=== PATIENT | female | born 1955 ===

== ENCOUNTER 2017-10-08 10:54 | Emergency (ER) | payer MEDICAID ==
[2017-10-08 10:54] VITALS: BMI 25.4
[2017-10-08 11:12] VITALS: RESP 18; TEMP 98.5; O2SAT 100
[2017-10-08] MEDS ORDERED: Sodium Chloride 0.9% 1,000 ML IV STA (12:02)
--- NOTE | 2017-10-08 12:09 | ED PDOC ---
Arrival/HPI - General Chief Complaint: Flu-like Symptoms Time Seen by Provider: 10/08/17 11:53 Historian: Patient - History of Present Illness Narrative History of Present Illness (Text): 10/08/17 11:53 Lya Tafoya is a 62 year old female who presents to the emergency department complaining of flu-like symptoms that include mild coughs, congestion, URI, fever, chills, myalgias, arthralgias for the past 4 days. Patient states that she went to a walk-in center and tested positive for the flu. The patient was started on Tamiflu to no relief. No other complaints offered at this time. Time/Duration: < week Symptom Onset: Gradual Symptom Course: Unchanged Activities at Onset: Light Context: Home Past Medical History - Provider Review Nursing Documentation Reviewed: Yes - Infectious Disease Hx of Infectious Diseases: None - Cardiac Hx Hypertension: Yes - Pulmonary Hx Asthma: Yes - Neurological Hx Neurological Disorder: No - HEENT Hx HEENT Disorder: No - Renal Hx Renal Disorder: No - Integumentary Hx Dermatological Disorder: No - Musculoskeletal/Rheumatological Hx Musculoskeletal Disorders: No - Gastrointestinal Hx Gastrointestinal Disorders: No - Psychiatric Hx Substance Use: No - Past Surgical History Past Surgical History: No Previous - Anesthesia Hx Anesthesia: No Hx Anesthesia Reactions: No Hx Malignant Hyperthermia: No - Suicidal Assessment Feels Threatened In Home Enviroment: No Family/Social History - Physician Review Nursing Documentation Reviewed: Yes Family/Social History: No Known Family HX Smoking Status: Never Smoked Hx Alcohol Use: No Hx Substance Use: No Hx Substance Use Treatment: No Allergies/Home Meds Allergies/Adverse Reactions: Allergies No Known Allergies Allergy (Verified 10/08/17 11:16) Home Medications: Home Meds Medication Instructions Recorded Confirmed Doxycycline Hyclate [Doryx] 100 mg PO BID 10/08/17 10/08/17 Oseltamivir Phosphate [Tamiflu] 75 mg PO BID 10/08/17 10/08/17 Review of Systems - Physician Review All systems were reviewed & negative as marked: Yes - Review of Systems Constitutional: Fevers, Night Sweats Eyes: absent: Vision Changes ENT: Sinus Congestion. absent: Hearing Changes Respiratory: Cough Cardiovascular: absent: Chest Pain Gastrointestinal: absent: Abdominal Pain, Nausea, Vomiting Genitourinary Female: Other (URI) Musculoskeletal: Arthralgias, Myalgias Skin: absent: Rash, Pruritis Neurological: absent: Headache Endocrine: absent: Diaphoresis Hemo/Lymphatic: absent: Adenopathy Psychiatric: absent: Anxiety, Depression Physical Exam Vital Signs Reviewed: Yes Vital Signs Temp Pulse Resp BP Pulse Ox 10/08/17 12:59 71 18 168/96 H 100 10/08/17 11:10 98.5 F 76 18 186/104 H 100 Temperature: Afebrile Blood Pressure: Hypertensive Pulse: Regular Respiratory Rate: Normal Appearance: Positive for: Uncomfortable Pain Distress: None Mental Status: Positive for: Alert and Oriented X 3 - Systems Exam Head: Present: Atraumatic, Normocephalic Pupils: Present: PERRL Extroacular Muscles: Present: EOMI Conjunctiva: Present: Normal Ears: Present: Normal Mouth: Present: Moist Mucous Membranes Pharnyx: Present: Normal Neck: Present: Normal Range of Motion Respiratory/Chest: Present: Clear to Auscultation, Good Air Exchange. No: Respiratory Distress, Accessory Muscle Use Cardiovascular: Present: Regular Rate and Rhythm, Normal S1, S2. No: Murmurs Abdomen: Present: Normal Bowel Sounds. No: Tenderness, Distention, Peritoneal Signs Upper Extremity: Present: Normal Inspection. No: Cyanosis, Edema Lower Extremity: Present: Normal Inspection. No: Edema Skin: Present: Warm, Dry, Normal Color. No: Rashes Psychiatric: Present: Alert, Oriented x 3, Normal Insight, Normal Concentration Medical Decision Making ED Course and Treatment: 10/08/17 12:10 Impression: 62 year old female complaining of flu-like symptoms that include mild coughs, congestion, URI, fever, chills, myalgias, arthralgias for the past 4 days. Plan: -- Chest X-ray -- Labs -- Motrin and IV fluids -- Reassess and disposition Progress Notes: 10/08/17 13:39 Seen at another facility and flu positive. No better on Tamiflu. Patient does not appear ill or toxic. - Lab Interpretations Lab Results: 10/08/17 12:50 10/08/17 12:50 Lab Results 10/08/17 12:50: Sodium 145, Potassium 4.1, Chloride 104, Carbon Dioxide 30, Anion Gap 15, BUN 13, Creatinine 0.7, Est GFR ( Amer) > 60, Est GFR (Non- Af Amer) > 60, Random Glucose 97, Calcium 9.5, Total Bilirubin 0.3, AST 28, ALT 30, Alkaline Phosphatase 76, Total Protein 7.7, Albumin 4.0, Globulin 3.7, Albumin/Globulin Ratio 1.1 10/08/17 12:50: WBC 8.0, RBC 4.75, Hgb 14.1, Hct 42.2, MCV 88.8, MCH 29.7, MCHC 33.4, RDW 12.7, Plt Count 189, MPV 10.0, Gran % 72.3 H, Lymph % (Auto) 22.7, [place] % (Auto) 4.4, Eos % (Auto) 0.5 L, Baso % (Auto) 0.1, Gran # 5.76, Lymph # ( Auto) 1.8, [place] # (Auto) 0.4, Eos # (Auto) 0.0, Baso # (Auto) 0.01 I have reviewed the lab results: Yes - RAD Interpretation Radiology Orders: 10/08/17 12:02 CHEST TWO VIEWS (PA/LAT) [RAD] Stat Chest 2 view shows no infiltrate effusion or cardiomegaly Piano Tuner: ED Physician - Medication Orders Current Medication Orders: Discontinued Medications Sodium Chloride (Sodium Chloride 0.9%) 1,000 mls @ 1,000 mls/hr IV .Q1H STA Stop: 10/08/17 13:01 Last Admin: 10/08/17 12:39 Dose: 1,000 mls/hr eMAR Start Stop Document 10/08/17 12:39 [place] (Rec: 10/08/17 12:39 [facility] [id number]) Intravenous Solution Start Date 10/08/17 Start Time 12:39 Ibuprofen (Motrin Tab) 400 mg PO STAT STA Stop: 10/08/17 12:03 Last Admin: 10/08/17 12:39 Dose: 400 mg - Scribe Statement The provider has reviewed the documentation as recorded by the Felisha Joseph Provider Scribe Attestation: All medical record entries made by the Scribe were at my direction and personally dictated by me. I have reviewed the chart and agree that the record accurately reflects my personal performance of the history, physical exam, medical decision making, and the department course for this patient. I have also personally directed, reviewed, and agree with the discharge instructions and disposition. Disposition/Present on Arrival - Present on Arrival Any Indicators Present on Arrival: No History of DVT/PE: No History of Uncontrolled Diabetes: No Urinary Catheter: No History of Decub. Ulcer: No History Surgical Site Infection Following: None - Disposition Have Diagnosis and Disposition been Completed?: Yes Diagnosis: Influenza Disposition: HOME/ ROUTINE Disposition Time: 13:39 Patient Plan: Discharge Patient Problems: Current Active Problems Problem Status Onset Influenza Acute Condition: GOOD Discharge Instructions (ExitCare): Influenza (ED) Additional Instructions: Symptomatic treatment. Tylenol or Advil as directed on bottle as needed. Hypertension check with PMD. Follow up in ER as needed. Forms: [facility] (Croatian)
[2017-10-08 13:06] LABS: BASO # 0.01 K/mm3 (0.0-2.0); BASO % 0.1 % (0.0-3.0); EOS % 0.5 % (1.5-5.0); GRAN # 5.76 (1.4-6.5); GRAN % 72.3 % (50.0-68.0); HEMOGLOBIN 14.1 g/dL (12.0-16.0); LYMPH # 1.8 (1.2-3.4); LYMPH % 22.7 % (22.0-35.0); MEAN CELL VOLUME 88.8 fl (80.0-105.0); MEAN CORPUSCULAR HEMOGLOBIN 29.7 pg (25.0-35.0); MEAN CORPUSCULAR HGB CONC 33.4 g/dl (31.0-37.0); MONO # 0.4 (0.1-0.6); MONO % 4.4 % (1.0-6.0); RBC 4.75 10^6/uL (3.5-6.1); RED CELL DISTRIBUTION WIDTH 12.7 % (11.5-14.5)
--- NOTE | 2017-10-08 13:10 | RAD ---
HISTORY: cough COMPARISON: No prior. TECHNIQUE: Chest PA and lateral FINDINGS: LUNGS: No active pulmonary disease. PLEURA: No significant pleural effusion identified. No pneumothorax apparent. CARDIOVASCULAR: Normal. OSSEOUS STRUCTURES: No significant abnormalities. VISUALIZED UPPER ABDOMEN: Normal. OTHER FINDINGS: None. IMPRESSION: No active disease.
[2017-10-08 13:16] LABS: ALB/GLOB RATIO 1.1 (1.1-1.8); ALT/SGPT 30 U/L (7-56); AST/SGOT 28 U/L (14-36); BLOOD UREA NITROGEN 13 mg/dL (7-21); CALCIUM 9.5 mg/dL (8.4-10.5); GFR AFRICAN-AMERICAN > 60; GFR NON-AFRICAN AMERICAN > 60
[2017-10-08 13:57] VITALS: BP 165/86; PULSE 76
== END 2017-10-08 14:00 | disposition home or self-care (01) ==
LOC: ED 10:54
DX: J11.1 Influenza due to unidentified influenza virus with other respiratory manifestations (principal); I10 Essential (primary) hypertension
CPT/HCPCS: 71046; 80053; 85025; 99285; J7040

== ENCOUNTER 2017-10-10 07:18 | Emergency (ER) | payer MEDICAID ==
[2017-10-10 07:19] VITALS: BMI 25.4
[2017-10-10] MEDS ORDERED: Sodium Chloride 0.9% 1,000 ML IV STA (08:04)
--- NOTE | 2017-10-10 08:23 | ED PDOC ---
Arrival/HPI - General Chief Complaint: Anxiety Time Seen by Provider: 10/10/17 07:56 Historian: Patient - History of Present Illness Narrative History of Present Illness (Text): 10/10/17 08:04 A 62 year old female, whose past medical history includes hypertension, menopause, and asthma, presents to the emergency department complaining of anxiety since yesterday. Patient reports also experiencing associated chest discomfort, shortness of breath, weakness, abdominal pain, nausea, and appetite changes, but denies of any urinary symptoms. Her symptoms are similar to her anxiety. She also recently took tamiflu for flu-like symptoms. PMD: Dr. Tompkins Past Medical History - Provider Review Nursing Documentation Reviewed: Yes - Infectious Disease Hx of Infectious Diseases: None - Reproductive Menopause: Yes - Cardiac Hx Hypertension: Yes - Pulmonary Hx Asthma: Yes - Neurological Hx Neurological Disorder: No - HEENT Hx HEENT Disorder: No - Renal Hx Renal Disorder: No - Integumentary Hx Dermatological Disorder: No - Musculoskeletal/Rheumatological Hx Musculoskeletal Disorders: No - Gastrointestinal Hx Gastrointestinal Disorders: No - Psychiatric Hx Depression: No Hx Emotional Abuse: No Hx Physical Abuse: No Hx Substance Use: No - Past Surgical History Past Surgical History: No Previous - Anesthesia Hx Anesthesia: No Hx Anesthesia Reactions: No Hx Malignant Hyperthermia: No - Suicidal Assessment Feels Threatened In Home Enviroment: No Family/Social History - Physician Review Nursing Documentation Reviewed: Yes Family/Social History: No Known Family HX Smoking Status: Never Smoked Hx Alcohol Use: No Hx Substance Use: No Hx Substance Use Treatment: No Allergies/Home Meds Allergies/Adverse Reactions: Allergies No Known Allergies Allergy (Verified 10/08/17 11:16) Home Medications: Home Meds Medication Instructions Recorded Confirmed Lisinopril [Zestril] 20 mg PO DAILY 10/10/17 10/10/17 Omeprazole [Omeprazole] 40 mg PO DAILY 10/10/17 10/10/17 Simvastatin [Zocor] 20 mg PO DAILY 10/10/17 10/10/17 Temazepam [Restoril] 30 mg PO DAILY 10/10/17 10/10/17 traMADol [Ultram] 50 mg PO BID 10/10/17 10/10/17 Review of Systems - Physician Review All systems were reviewed & negative as marked: Yes - Review of Systems Constitutional: Other (associated weakness) Respiratory: SOB Cardiovascular: Chest Pain (chest discomfort) Gastrointestinal: Abdominal Pain (slightly), Nausea Genitourinary Female: absent: Dysuria, Frequency, Hematuria, Urine Output Changes Psychiatric: Anxiety Physical Exam Vital Signs Reviewed: Yes Vital Signs Temp Pulse Resp BP Pulse Ox 10/10/17 09:19 98 F 67 18 154/88 H 100 10/10/17 07:49 98.1 F 77 19 164/98 H 98 Temperature: Afebrile Blood Pressure: Hypertensive Pulse: Regular Respiratory Rate: Normal Appearance: Positive for: Well-Appearing Pain Distress: None Mental Status: Positive for: Alert and Oriented X 3 - Systems Exam Head: Present: Atraumatic, Normocephalic Pupils: Present: PERRL Extroacular Muscles: Present: EOMI Conjunctiva: Present: Normal Mouth: Present: Moist Mucous Membranes Nose (Internal): Present: Other (nasal congestion) Neck: Present: Normal Range of Motion Respiratory/Chest: Present: Clear to Auscultation, Good Air Exchange. No: Respiratory Distress, Accessory Muscle Use Cardiovascular: Present: Regular Rate and Rhythm, Normal S1, S2. No: Murmurs Abdomen: Present: Tenderness (mild epigastric tenderness). No: Rebound, Guarding Back: Present: Normal Inspection Upper Extremity: Present: Normal Inspection. No: Cyanosis, Edema Lower Extremity: Present: Normal Inspection. No: Edema Neurological: Present: GCS=15, CN II-XII Intact, Speech Normal Skin: Present: Warm, Dry, Normal Color. No: Rashes Psychiatric: Present: Alert, Oriented x 3, Normal Insight, Normal Concentration Medical Decision Making ED Course and Treatment: 10/10/17 08:08 Impression: 62 year old female with anxiety associated with pressure-like chest discomfort, weakness, shortness of breath, nausea. Physical exam shows mild epigastric tenderness with no guarding or rebound; nasal congestion; otherwise normal examination. Differential Diagnosis included but are not limited to: Anxiety vs. Gastric Reflux vs. Dehydration Plan: -- EKG -- Chest X-ray -- Labs -- Zofran -- IV Fluids -- Reassess and disposition Progress Notes: EKG: Ordered, reviewed, and independently interpreted the EKG. Rate : 83 BPM Rhythm : NSR Interpretation : No ST-segment elevations or depressions, no T-wave inversions, normal intervals. Comparison : No previous EKG for comparison. 10/10/2017 09:39 Chest X-ray IMPRESSION: No active disease. Dictator: Vicente Jean MD 10/10/17 09:52 After reevaluation, patient no longer has any symptoms after medications given. She no longer has abdominal or chest pain. Abdomen is soft, NT, ND. BSx4. She is tolerating PO fluids well in the ED. She will make sure to follow up with her primary care doctor. She was advised to return to the ED if symptoms worsen or any other concern. - Lab Interpretations Lab Results: 10/10/17 08:20 10/10/17 08:20 Lab Results 10/10/17 08:20: Sodium 144, Potassium 3.9, Chloride 106, Carbon Dioxide 26, Anion Gap 16, BUN 8, Creatinine 0.6 L, Est GFR ( Amer) > 60, Est GFR (Non -Af Amer) > 60, Random Glucose 103, Calcium 9.6, Magnesium 1.9, Total Bilirubin 0.2, AST 21, ALT 25, Alkaline Phosphatase 69, Total Protein 7.0, Albumin 3.7, Globulin 3.2, Albumin/Globulin Ratio 1.2, Lipase 139 10/10/17 08:20: WBC 7.3, RBC 4.61, Hgb 13.6, Hct 39.9, MCV 86.6, MCH 29.5, MCHC 34.1, RDW 12.4, Plt Count 218, MPV 9.7, Gran % 70.2 H, Lymph % (Auto) 23.5, [place] % (Auto) 5.5, Eos % (Auto) 0.7 L, Baso % (Auto) 0.1, Gran # 5.13, Lymph # ( Auto) 1.7, [place] # (Auto) 0.4, Eos # (Auto) 0.1, Baso # (Auto) 0.01 I have reviewed the lab results: Yes - RAD Interpretation Radiology Orders: 10/10/17 08:04 CXR [CHEST PORTABLE] [RAD] Stat - Medication Orders Current Medication Orders: Discontinued Medications Sodium Chloride (Sodium Chloride 0.9%) 1,000 mls @ 999 mls/hr IV .Q1H1M STA Stop: 10/10/17 09:04 Last Admin: 10/10/17 08:23 Dose: 999 mls/hr eMAR Start Stop Document 10/10/17 08:23 [place] (Rec: 10/10/17 08:24 LA [id number]) Intravenous Solution Start Date 10/10/17 Start Time 08:24 Ondansetron HCl (Zofran Inj) 4 mg IVP STAT STA Stop: 10/10/17 08:05 Last Admin: 10/10/17 08:25 Dose: 4 mg IVP Administration Document 10/10/17 08:25 [place] (Rec: 10/10/17 08:25 [place] [facility] [id number] Charges for Administration # of IVP Administrations 1 - Scribe Statement The provider has reviewed the documentation as recorded by the Felisha Kumar Provider Scribe Attestation: All medical record entries made by the Scribe were at my direction and personally dictated by me. I have reviewed the chart and agree that the record accurately reflects my personal performance of the history, physical exam, medical decision making, and the department course for this patient. I have also personally directed, reviewed, and agree with the discharge instructions and disposition. Disposition/Present on Arrival - Present on Arrival Any Indicators Present on Arrival: No History of DVT/PE: No History of Uncontrolled Diabetes: No Urinary Catheter: No History of Decub. Ulcer: No History Surgical Site Infection Following: None - Disposition Have Diagnosis and Disposition been Completed?: Yes Diagnosis: Anxiety, Chest pain, Abdominal pain Disposition: HOME/ ROUTINE Disposition Time: 09:52 Patient Plan: Discharge Condition: IMPROVED Discharge Instructions (ExitCare): Chest Pain (ED) Additional Instructions: Linda, thank you for letting us take care of you today. Your provider was Dr. Marin. You were treated for Anxiety, Chest Pain/Abdominal Pain. The emergency medical care you received today was directed at your acute symptoms. If you were prescribed any medication, please fill it and take as directed. It may take several days for your symptoms to resolve. Return to the Emergency Department if your symptoms worsen, do not improve, or if you have any other problems. Please contact your doctor or call one of the physicians/clinics you have been referred to that are listed on the Patient Visit Information form that is included in your discharge packet. Bring any paperwork you were given at discharge with you along with any medications you are taking to your follow up visit. Our treatment cannot replace ongoing medical care by a primary care provider (PCP) outside of the emergency department. Thank you for allowing the [email or web address] team to be part of your care today. If you had an X-Ray or CT scan: A Radiologist will review the ED reading if any change in treatment is needed we will contact you. If you had a blood, urine, or wound culture: It will take several days for the results, if any change in treatment is needed we will contact you. If you had an STI test: It will take 48 hours for the results. Please call after 1 week if you have not heard back. Referrals: [facility], [Non-Staff] - Follow up with primary Forms: [employer] (Pashto), WORK NOTE
[2017-10-10 08:36] LABS: BASO # 0.01 K/mm3 (0.0-2.0); BASO % 0.1 % (0.0-3.0); EOS # 0.1 (0.0-0.7); EOS % 0.7 % (1.5-5.0); GRAN # 5.13 (1.4-6.5); GRAN % 70.2 % (50.0-68.0); HEMOGLOBIN 13.6 g/dL (12.0-16.0); LYMPH # 1.7 (1.2-3.4); LYMPH % 23.5 % (22.0-35.0); MEAN CELL VOLUME 86.6 fl (80.0-105.0); MEAN CORPUSCULAR HEMOGLOBIN 29.5 pg (25.0-35.0); MEAN CORPUSCULAR HGB CONC 34.1 g/dl (31.0-37.0); MEAN PLATELET VOLUME 9.7 fl (7.0-11.0); MONO # 0.4 (0.1-0.6); MONO % 5.5 % (1.0-6.0); RBC 4.61 10^6/uL (3.5-6.1); RED CELL DISTRIBUTION WIDTH 12.4 % (11.5-14.5); WHITE BLOOD COUNT 7.3 10^3/ul (4.5-11.0)
[2017-10-10 08:52] LABS: ALB/GLOB RATIO 1.2 (1.1-1.8); ALBUMIN 3.7 g/dL (3.0-4.8); ALT/SGPT 25 U/L (7-56); AST/SGOT 21 U/L (14-36); BLOOD UREA NITROGEN 8 mg/dL (7-21); CALCIUM 9.6 mg/dL (8.4-10.5); GFR AFRICAN-AMERICAN > 60; GFR NON-AFRICAN AMERICAN > 60; LIPASE 139 U/L (23-300); MAGNESIUM 1.9 mg/dL (1.7-2.2)
--- NOTE | 2017-10-10 09:41 | RAD ---
HISTORY: chest pain COMPARISON: 10/08/2017 FINDINGS: LUNGS: No active pulmonary disease. PLEURA: No significant pleural effusion identified, no pneumothorax apparent. CARDIOVASCULAR: Normal. OSSEOUS STRUCTURES: No significant abnormalities. VISUALIZED UPPER ABDOMEN: Normal. OTHER FINDINGS: None. IMPRESSION: No active disease.
[2017-10-10 09:50] VITALS: BP 154/88; PULSE 67; RESP 18; TEMP 98; O2SAT 100
--- NOTE | 2017-10-10 16:02 | CARD ---
APPROVED REPORT EKG Measurement Heart [id number] <Conclusion> Normal sinus rhythm Possible Left atrial enlargement Borderline ECG
== END 2017-10-10 09:53 | disposition home or self-care (01) ==
LOC: ED 07:18
DX: F41.9 Anxiety disorder, unspecified (principal); R10.9 Unspecified abdominal pain; R07.9 Chest pain, unspecified; I10 Essential (primary) hypertension
CPT/HCPCS: 71045; 80053; 83690; 83735; 85025; 93005; 96374; 99284; J2405; J7040

== ENCOUNTER 2018-03-09 11:53 | Emergency (ER) | payer MEDICAID ==
[2018-03-09 12:02] VITALS: BMI 25.7
[2018-03-09 12:05] VITALS: RESP 18; TEMP 98.7
[2018-03-09] MEDS ORDERED: Sodium Chloride 0.9% 500 ML IV STA (12:17)
--- NOTE | 2018-03-09 12:21 | ED PDOC ---
Arrival/HPI - General Chief Complaint: Dizziness/Lightheaded Time Seen by Provider: 03/09/18 12:07 Historian: Patient - History of Present Illness Narrative History of Present Illness (Text): 03/09/18 12:18 A 62 year old female, whose past medical history includes hypertension, menopause, and asthma, presents to the emergency department with a complaint of sudden onset dizziness this morning. The patient states that she woke up this morning and turned her head quickly when she suddenly began to feel dizzy which she described as spinning sensation. She states that the dizziness is worsened with movement. The patient notes that she is a non-smoker, non-drinker. She denies fevers, chills, headache, numbness, tingling, chest pain, palpatations, shortness of breath, dyspnea on exertion, cough, abdominal pain, nausea, vomiting, diarrhea, back pain, neck pain, urinary/bowel changes, or any other complaint. PMD: Dr. Tompkins Time/Duration: Other (This morning) Symptom Onset: Sudden Symptom Course: Unchanged Activities at Onset: Rest, Light Context: Home Past Medical History - Provider Review Nursing Documentation Reviewed: Yes - Infectious Disease Hx of Infectious Diseases: None - Cardiac Hx Hypertension: Yes - Pulmonary Hx Asthma: Yes - Neurological Hx Neurological Disorder: No Hx Headaches: Yes - HEENT Hx HEENT Disorder: No - Renal Hx Renal Disorder: No - Integumentary Hx Dermatological Disorder: No - Musculoskeletal/Rheumatological Hx Musculoskeletal Disorders: No Hx Back Pain: Yes - Gastrointestinal Hx Gastrointestinal Disorders: No - Psychiatric Hx Depression: No Hx Emotional Abuse: No Hx Physical Abuse: No Hx Substance Use: No - Past Surgical History Past Surgical History: No Previous - Anesthesia Hx Anesthesia: No Hx Anesthesia Reactions: No Hx Malignant Hyperthermia: No - Suicidal Assessment Feels Threatened In Home Enviroment: No Family/Social History - Physician Review Nursing Documentation Reviewed: Yes Family/Social History: No Known Family HX Smoking Status: Never Smoked Hx Alcohol Use: No Hx Substance Use: No Hx Substance Use Treatment: No Allergies/Home Meds Allergies/Adverse Reactions: Allergies No Known Allergies Allergy (Verified 03/09/18 12:02) Home Medications: Home Meds Medication Instructions Recorded Confirmed Lisinopril [Zestril] 20 mg PO DAILY 10/10/17 03/09/18 Omeprazole [Omeprazole] 40 mg PO DAILY 10/10/17 03/09/18 Simvastatin [Zocor] 20 mg PO DAILY 10/10/17 03/09/18 Temazepam [Restoril] 30 mg PO DAILY 10/10/17 03/09/18 traMADol [Ultram] 50 mg PO BID 10/10/17 03/09/18 Review of Systems - Physician Review All systems were reviewed & negative as marked: Yes - Review of Systems Constitutional: absent: Fevers, Night Sweats Respiratory: absent: SOB, Cough Cardiovascular: absent: Chest Pain, HILL Gastrointestinal: absent: Abdominal Pain, Diarrhea, Nausea, Vomiting Genitourinary Female: absent: Urine Output Changes Musculoskeletal: absent: Back Pain, Neck Pain Neurological: Dizziness (Spinning sensation.). absent: Headache Physical Exam Vital Signs Reviewed: Yes Vital Signs Temp Pulse Resp BP Pulse Ox 03/09/18 13:51 73 18 146/76 98 03/09/18 13:39 79 18 146/76 96 03/09/18 12:02 98.7 F 79 18 150/81 97 Temperature: Afebrile Blood Pressure: Normal Pulse: Regular Respiratory Rate: Normal Appearance: Positive for: Well-Appearing, Non-Toxic, Comfortable Pain Distress: None Mental Status: Positive for: Alert and Oriented X 3 Finger Stick Blood Glucose: 144 - Systems Exam Head: Present: Atraumatic, Normocephalic Pupils: Present: PERRL Extroacular Muscles: Present: EOMI Conjunctiva: Present: Normal Mouth: Present: Moist Mucous Membranes Neck: Present: Normal Range of Motion Respiratory/Chest: Present: Clear to Auscultation, Good Air Exchange. No: Respiratory Distress, Accessory Muscle Use Cardiovascular: Present: Regular Rate and Rhythm, Normal S1, S2. No: Murmurs Abdomen: No: Tenderness, Distention, Peritoneal Signs Back: Present: Normal Inspection Upper Extremity: Present: Normal Inspection. No: Cyanosis, Edema Lower Extremity: Present: Normal Inspection. No: Edema Neurological: Present: GCS=15, CN II-XII Intact, Speech Normal, Motor Func Grossly Intact, Normal Sensory Function Skin: Present: Warm, Dry, Normal Color. No: Rashes Psychiatric: Present: Alert, Oriented x 3, Normal Insight, Normal Concentration Medical Decision Making ED Course and Treatment: 03/09/18 12:23 Impression: A 62 year old female presents to the emergency department with complaint of sudden onset dizziness, described as spinning sensation. Plan: -- Head CT -- EKG -- Labs -- Antivert and IV Fluids -- Reassess and disposition Progress Notes: 03/09/18 12:48 EKG shows normal sinus rhythm rate approximately 70 with poor R-wave progression and nonspecific ST T-wave changes with no acute changes. 03/09/18 13:48 Symptoms markedly improved post Antivert and IV fluids. PROCEDURE: CT HEAD WITHOUT CONTRAST Dictator : Kapil Haddad MD Report Date : 03/09/2018 13:43:21 IMPRESSION: No acute intracranial abnormalities. No significant findings to account for the clinical presentation. - Lab Interpretations Lab Results: 03/09/18 12:30 03/09/18 12:30 Lab Results 03/09/18 12:30: Sodium 145, Potassium 4.4, Chloride 106, Carbon Dioxide 29, Anion Gap 15, BUN 15, Creatinine 0.7, Est GFR ( Amer) > 60, Est GFR (Non- Af Amer) > 60, Random Glucose 105, Calcium 9.4, Magnesium 2.0, Total Bilirubin 0.3, AST 28, ALT 27, Alkaline Phosphatase 74, Lactate Dehydrogenase 440, Total Creatine Kinase 50, Troponin I < 0.01, Total Protein 7.5, Albumin 4.1, Globulin 3.3, Albumin/Globulin Ratio 1.2 03/09/18 12:30: WBC 6.4, RBC 4.63, Hgb 13.9, Hct 40.5, MCV 87.5, MCH 30.0, MCHC 34.3, RDW 12.8, Plt Count 231, MPV 9.7, Gran % 61.4, Lymph % (Auto) 28.2, [place] % (Auto) 5.5, Eos % (Auto) 4.3, Baso % (Auto) 0.6, Gran # 3.90, Lymph # (Auto) 1.8, [place] # (Auto) 0.4, Eos # (Auto) 0.3, Baso # (Auto) 0.04 I have reviewed the lab results: Yes - RAD Interpretation Radiology Orders: 03/09/18 12:17 HEAD W/O CONTRAST [CT] Stat CT scan of the head as read by the radiologist shows no acute findings. Procurement Director: Radiologist - EKG Interpretation Interpreted by ED Physician: Yes Type: 12 lead EKG - Medication Orders Current Medication Orders: Discontinued Medications Sodium Chloride (Sodium Chloride 0.9%) 500 mls @ 1,000 mls/hr IV .Q30M STA Stop: 03/09/18 12:46 Last Admin: 03/09/18 12:41 Dose: 1,000 mls/hr eMAR Start Stop Document 03/09/18 12:41 GMD (Rec: 03/09/18 12:41 GMD [id number]) Intravenous Solution Start Date 03/09/18 Start Time 12:41 End Date 03/09/18 End time 13:11 Total Infusion Time 30 Meclizine HCl (Antivert) 25 mg PO ONCE ONE Stop: 03/09/18 12:19 Last Admin: 03/09/18 12:41 Dose: 25 mg - Scribe Statement The provider has reviewed the documentation as recorded by the Hannahibe Cheri Case Provider Scribe Attestation: All medical record entries made by the Scribe were at my direction and personally dictated by me. I have reviewed the chart and agree that the record accurately reflects my personal performance of the history, physical exam, medical decision making, and the department course for this patient. I have also personally directed, reviewed, and agree with the discharge instructions and disposition. Disposition/Present on Arrival - Present on Arrival Any Indicators Present on Arrival: No History of DVT/PE: No History of Uncontrolled Diabetes: No Urinary Catheter: No History of Decub. Ulcer: No History Surgical Site Infection Following: None - Disposition Have Diagnosis and Disposition been Completed?: Yes Diagnosis: Vertigo Disposition: HOME/ ROUTINE Disposition Time: 13:48 Patient Plan: Discharge Patient Problems: Current Active Problems Problem Status Onset Vertigo Acute Condition: IMPROVED Discharge Instructions (ExitCare): Vertigo (a Type of Dizziness) Additional Instructions: No driving. Follow-up with PMD. Follow up in ER as needed. Prescriptions: Meclizine [Meclizine*] 25 mg PO Q6 #20 tab Forms: [employer] ([place])
[2018-03-09 12:46] LABS: BASO # 0.04 K/mm3 (0.0-2.0); BASO % 0.6 % (0.0-3.0); EOS # 0.3 (0.0-0.7); EOS % 4.3 % (1.5-5.0); GRAN # 3.9 (1.4-6.5); GRAN % 61.4 % (50.0-68.0); HEMOGLOBIN 13.9 g/dL (12.0-16.0); LYMPH # 1.8 (1.2-3.4); LYMPH % 28.2 % (22.0-35.0); MEAN CELL VOLUME 87.5 fl (80.0-105.0); MEAN CORPUSCULAR HGB CONC 34.3 g/dl (31.0-37.0); MEAN PLATELET VOLUME 9.7 fl (7.0-11.0); MONO # 0.4 (0.1-0.6); MONO % 5.5 % (1.0-6.0); RBC 4.63 10^6/uL (3.5-6.1); RED CELL DISTRIBUTION WIDTH 12.8 % (11.5-14.5); WHITE BLOOD COUNT 6.4 10^3/ul (4.5-11.0)
[2018-03-09 12:56] LABS: ALB/GLOB RATIO 1.2 (1.1-1.8); ALBUMIN 4.1 g/dL (3.0-4.8); ALT/SGPT 27 U/L (7-56); AST/SGOT 28 U/L (14-36); BLOOD UREA NITROGEN 15 mg/dL (7-21); CALCIUM 9.4 mg/dL (8.4-10.5); GFR AFRICAN-AMERICAN > 60; GFR NON-AFRICAN AMERICAN > 60
[2018-03-09 13:07] LABS: TROPONIN I < 0.01 ng/mL
[2018-03-09 13:40] VITALS: BP 146/76
--- NOTE | 2018-03-09 13:45 | CT ---
PROCEDURE: CT HEAD WITHOUT CONTRAST. HISTORY: dizzy COMPARISON: None available. TECHNIQUE: Axial computed tomography images were obtained through the head/brain without intravenous contrast. Coronal and sagittal reconstructed images. Radiation dose: Total exam DLP = 827.33 fat mGy-cm. This CT exam was performed using one or more of the following dose reduction techniques: Automated exposure control, adjustment of the mA and/or kV according to patient size, and/or use of iterative reconstruction technique. FINDINGS: HEMORRHAGE: No intracranial hemorrhage. BRAIN: No mass effect or edema. No atrophy or chronic microvascular ischemic changes. VENTRICLES: Unremarkable. No hydrocephalus. CALVARIUM: Unremarkable. PARANASAL SINUSES: Unremarkable as visualized. No significant inflammatory changes. MASTOID AIR CELLS: Unremarkable as visualized. No inflammatory changes. OTHER FINDINGS: None. IMPRESSION: No acute intracranial abnormalities. No significant findings to account for the clinical presentation.
[2018-03-09 13:51] VITALS: PULSE 73; O2SAT 98
--- NOTE | 2018-03-10 08:55 | CARD ---
APPROVED REPORT EKG Measurement Heart [id number] <Conclusion> Normal sinus rhythm Nonspecific T wave abnormality Prolonged QT No change
== END 2018-03-09 14:04 | disposition home or self-care (01) ==
LOC: ED 11:53
DX: R42 Dizziness and giddiness (principal); I10 Essential (primary) hypertension
CPT/HCPCS: 70450; 80053; 82550; 83615; 83735; 84484; 85025; 93005; 99285; J7040